=== PATIENT | male | born 1990 | race Caucasian/White ===

== ENCOUNTER 2025-03-21 23:35 | Emergency (ER) | payer MEDICAID ==
[~2025-03-21] VITALS: Ht 175.3 cm; Wt 108.2 kg
[2025-03-22 00:04] VITALS: TEMP 98.8
[2025-03-22] MEDS: MORPHINE SULFATE 2 MG/ML SYRINGE IVP ONE ×2 (00:50→02:20)
[2025-03-22] MEDS: SODIUM CHLORIDE 0.9% 1,000 ML IV ONE (00:50)
[2025-03-22 01:09] VITALS: BP 140/85; PULSE 69; RESP 17; O2SAT 98
[2025-03-22 01:39] LABS: PLATELET COUNT (AUTO) 227 K/uL (150-450); RED BLOOD CELL COUNT(AUTO) 5.08 MIL/uL (4.50-5.90); RED CELL DISTRIBUTION WIDTH 13.0 % (11.5-14.5); WHITE BLOOD COUNT (AUTO) 11.6 K/uL (4.5-11.0)
[2025-03-22 01:46] LABS: CALCIUM, TOTAL 8.1 mg/dL (8.8-10.5); CREATININE 0.87 mg/dL (0.60-1.30); GLOMERULAR FILTR. RATE CALC > 60 mL/min (>60); GLUCOSE,RANDOM 108 mg/dL (70-110); SODIUM SERUM 136 mmol/L (136-145); UREA NITROGEN, BLOOD 11 mg/dL (7-18)
== END 2025-03-22 03:47 | disposition home or self-care (01) ==
LOC: EMS 03-22 00:23
DX: S52.591A Other fractures of lower end of right radius, initial encounter for closed fracture (principal); S09.90XA Unspecified injury of head, initial encounter; F12.90 Cannabis use, unspecified, uncomplicated; F17.210 Nicotine dependence, cigarettes, uncomplicated; V00.141A Fall from scooter (nonmotorized), initial encounter; V89.2XXA Person injured in unspecified motor-vehicle accident, traffic, initial encounter; Y93.89 Activity, other specified; Y92.410 Unspecified street and highway as the place of occurrence of the external cause; Y99.8 Other external cause status
CPT/HCPCS: 99285; 70450; 96374; 96361; 80048; 85025; 36415; 73030; 73090; 73100; 72125; 72128; 29125; 96376; G0480; J2270; J7030